=== PATIENT | male | born 1995 | race African-American/Black ===

== ENCOUNTER 2020-04-23 08:54 | Emergency (ER) | payer SELFPAY ==
[2020-04-23] MEDS ORDERED: NA CHLORIDE 0.9% 2,000 ML ONE (09:09)
[2020-04-23] MEDS ORDERED: FENTANYL CITR 100 MCG/2 ML ONE (09:10)
[2020-04-23 09:37] LABS: Absolute Lymphocytes (CBC) 3.9 K/uL (0.7-4.9); Basophils % 1.2 % (0-1.3); Hematocrit 47.2 % (39.6-49.0); Lymphocytes % 37.4 % (15.3-44.8); MPV 9.1 fL (7.6-11.3); RBC Red Blood Cell Count 5.87 M/uL (4.33-5.43)
[2020-04-23] MEDS ORDERED: TETANUS & DIPHTHERIA TOX,ADULT 0.5 ML VIAL ONE (09:37)
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
[2020-04-23] MEDS ORDERED: CEFAZOLIN/SWI 1gm 2 GM/20 ML SYR ONE (10:09)
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
[2020-04-23] MEDS ORDERED: HYDROCODONE/APAP 5/325 MG TAB ONE (10:38)
[2020-04-23 11:48] VITALS: TEMP 97.8; O2SAT 100
[2020-04-23 11:51] VITALS: BP 152/93
== END 2020-04-23 11:08 | disposition home or self-care (01) ==
LOC: ER 08:54
DX: S21.241A Puncture wound with foreign body of right back wall of thorax without penetration into thoracic cavity, initial encounter (principal); X95.9XXA Assault by unspecified firearm discharge, initial encounter
CPT/HCPCS: 71045; 71260; 74177; 85025; 86850; 86900; 86901; 90471; 90714; 99291; G0390; J0690; J3010; J7030; Q9967